=== PATIENT | female | born 1955 | race Caucasian/White ===

== ENCOUNTER → 2017-06-10 | Outpatient (CLI) | payer BC ==
[~2017-06-10] MED LIST: AZULFIDINE ENT500 MG PO; PREDNISONE 5MG5 MG PO; TYLENOL 8 HR PO
== END ==
LOC: MC.RAD 07:00
DX: Z12.31 Encounter for screening mammogram for malignant neoplasm of breast (principal)

== ENCOUNTER → 2017-12-20 | Outpatient (CLI) | payer BC | LOC: COL.RAD 13:12 | DX: M06.871 Other specified rheumatoid arthritis, right ankle and foot (principal) | CPT/HCPCS: J3301; Q9967 ==

== ENCOUNTER → 2018-06-02 | Outpatient (CLI) | payer BC | LOC: MC.RAD 06:58 | DX: Z12.31 Encounter for screening mammogram for malignant neoplasm of breast (principal) ==

== ENCOUNTER → 2020-05-03 | Outpatient (CLI) | payer MEDICARE | LOC: MC.RAD 10:58 | DX: Z12.31 Encounter for screening mammogram for malignant neoplasm of breast (principal); Z98.82 Breast implant status ==

== ENCOUNTER → 2021-05-05 | Outpatient (CLI) | payer MEDICARE | LOC: MC.RAD 07:30 | DX: Z12.31 Encounter for screening mammogram for malignant neoplasm of breast (principal) ==

== ENCOUNTER → 2022-05-17 | Outpatient (CLI) | payer MEDICARE | LOC: MC.RAD 06:55 | DX: Z12.31 Encounter for screening mammogram for malignant neoplasm of breast (principal) ==

== ENCOUNTER → 2023-06-20 | Outpatient (CLI) | payer MEDICARE | LOC: CANSCHCLI → MC.RAD 07:46 | DX: Z12.31 Encounter for screening mammogram for malignant neoplasm of breast (principal) ==